=== PATIENT | female | born 1985 | race Caucasian/White ===

== ENCOUNTER 2022-08-22 12:41 | Emergency (ER) | payer SELFPAY ==
[~2022-08-22] VITALS: Ht 162.6 cm; Wt 63.5 kg
[2022-08-22 12:43] VITALS: BP 122/65
--- NOTE | 2022-08-22 12:46 | NUR ---
Esperanza gonzalez in [facility] - 08/22/22 at 1358 by CORNELIO Patient BIBA to bed 7 at this time.
--- NOTE | 2022-08-22 13:16 | NUR ---
16FR STRAIGHT catheter inserted AND REMOVED utilizing sterile technique. Immediate return of YELLOW CLEAR 50 ML urine noted. Urine sample collected and sent to lab. Pt tolerated procedure WELL .
--- NOTE | 2022-08-22 13:30 | NUR ---
37YO FEMALE PT BIBA FROM HOME DUE TO ALOC XTODAY. PER [facility], STATES PT HAS BEEN "RUMBLING ON" AND NOTES PT HAS BEEN OFF ADHD MEDS - UNKNOWN MED OR DAYS- W/ THIS BEING A FIRST TIME REACTION. NOTES MARIJUANA USE ON SAT . UPON ARRIVAL PT W/ EXCESSIVE SPEECH AND OFTEN CHANGING TOPICS. PT AROUSABLE TO TOUCH AND VOICE BUT UNABLE COMPLY W/ ASSESMENT. COMPLIANT W/ SIMPLE INSTRUCTIONS. RESPIRATIONS EVEN AND UNLABORED. BED AT LOWEST POSITION, BED RAILS UPX2. HX:ADHD ALLERGIES:UNOBTAINABLE
--- NOTE | 2022-08-22 13:40 | NUR ---
pt found standing at bedside, pt redirected to bed
[2022-08-22 13:54] LABS: BARBITURATE, URINE NEGATIVE ng/ml (NEG <=200); BENZODIAZEPINE, URINE NEGATIVE ng/mL (NEG <=200); CANNABINOID, URINE POSITIVE ng/mL (NEG <=50); COCAINE, URINE NEGATIVE ng/mL (NEG <=300); OPIATE, URINE NEGATIVE ng/mL (NEG <=2000); PHENCYCLIDINE SCREEN,URINE NEGATIVE ng/mL (NEG <=25)
[2022-08-22] MEDS ORDERED: LORazepam 2 MG/ML VIAL IM ONE (14:20)
[2022-08-22] MEDS ORDERED: HALOPERIDOL IM 5 MG/ML VIAL IM ONE (14:20)
--- NOTE | 2022-08-22 15:15 | NUR ---
pt resting w/ eyes closed. respirations even and unlabored. bed at lowest position, bed rails upx2
[2022-08-22 15:24] LABS: BASOPHILS % (AUTO) 0.4 % (0.0-2.0); EOSINOPHILS # (AUTO) 0.1 K/uL (0-0.4); EOSINOPHILS % (AUTO) 0.5 % (0.0-4.0); HEMATOCRIT 39.6 % (36-48); HEMOGLOBIN 13.3 g/dL (12.0-16.0); LYMPHOCYTES # (AUTO) 2.2 K/uL (2.5-16.5); LYMPHOCYTES % (AUTO) 18.7 % (20.5-51.1); MEAN CORPUSCULAR HEMOGLOBIN 30 pg (27-31); MEAN CORPUSCULAR HGB CONC 34 g/dL (33-37); MEAN CORPUSCULAR VOLUME 89.1 fL (80-94); MONOCYTES # (AUTO) 0.9 K/uL (0.8-1.0); MONOCYTES % (AUTO) 7.3 % (1.7-9.3); NEUTROPHILS # (AUTO) 8.7 K/uL (1.8-7.7); NEUTROPHILS % (AUTO) 73.1 % (42.2-75.2); PLATELET COUNT (AUTO) 461 K/uL (140-450); RED BLOOD CELL COUNT(AUTO) 4.45 MIL/uL (4.20-5.40); RED CELL DISTRIBUTION WIDTH 13.2 % (11.6-13.7); WHITE BLOOD COUNT (AUTO) 11.9 K/uL (4.8-10.8)
[2022-08-22 15:42] LABS: ALBUMIN 3.8 g/dL (3.4-5.0); ANION GAP 17.3 (8-16); ASPARTATE AMINOTRANSFERASE 16 U/L (15-37); CARBON DIOXIDE 22.7 mmol/L (21-32); CHLORIDE 103 mmol/L (98-107); CREATININE 0.9 mg/dL (0.6-1.3); GFR ARICAN-AMERICAN 92 mL/min (>90); GLUCOSE 79 mg/dL (74-106); SODIUM SERUM 139 mmol/L (136-145); TOTAL BILIRUBIN 0.6 mg/dL (0.0-1.0); UREA NITROGEN, BLOOD 21 mg/dL (7-18)
--- NOTE | 2022-08-22 15:45 | NUR ---
pt swabbed for covid(tessie/novel) handed to produce laborer
[2022-08-22 15:46] LABS: SALICYLATE < 2.8 mg/dL (2.8-20.0)
[2022-08-22 15:47] LABS: ACETAMINOPHEN < 0.5 ug/ml (10-30)
[2022-08-22 17:25] VITALS: BP 119/81
--- NOTE | 2022-08-22 19:30 | NUR ---
REPORT TAKEN FROM MICHAEL MONK PT IS SLEEPING RESP EVEN AND UNLABORED. DISP PENDING . PT IS AROUSABLE. AT HOME. WILL SET UP TRANSPORT TO HOME FOR PT. BED AT LOWEST POSITION. SIDE RAILS UP X2 NKDA NO MED HX
--- NOTE | 2022-08-22 19:31 | NUR ---
REPORT GIVEN TO KELLY MONK. TRANSFER OF CARE AT THIS TIME
--- NOTE | 2022-08-22 19:56 | NUR ---
PATIENT RQ BLANKET
--- NOTE | 2022-08-22 20:01 | NUR ---
Patient discharged with v/s stable. Written and verbal after care instructions given and explained. Patient verbalized understanding. Ambulatory with steady gait. All questions addressed prior to discharge. Advised to follow up with PMD.
--- NOTE | 2022-08-22 20:01 | NUR ---
Chart checked and completed.
== END 2022-08-22 20:01 | disposition home or self-care (01) ==
LOC: MED 12:41
DX: F15.10 Other stimulant abuse, uncomplicated (principal); Z20.822 Contact with and (suspected) exposure to COVID-19; F12.10 Cannabis abuse, uncomplicated; R41.82 Altered mental status, unspecified
CPT/HCPCS: 36415; 80053; 80305; 81025; 82140; 85025; 87426; 87635; 96372; 99285; C9803; G0480; G0482; J1630; J2060; U0003